=== PATIENT | female | born 2005 | race Caucasian/White ===

== ENCOUNTER 2024-09-02 13:34 | Outpatient (CLI) | payer BC ==
[2024-09-02 14:54] LABS: Hematocrit 39.1 % (34.9-44.5); Hemoglobin 11.8 g/dL (12.0-15.5); Mean Corpuscular HGB CONC 30.2 g/dL (32.0-36.0); Mean Corpuscular Hemoglobin 24.4 pg (27.0-33.0); Mean Platelet Volume 10.3 fL (7.4-10.4); Platelet Count 245 10x3/uL (150-450); RBC Distribution Width 23.1 % (11.5-14.5); Red Blood Cell (RBC) Count 4.83 10x6/uL (3.90-5.03); White Blood Cell (WBC) Count 6.14 10x3/uL (3.5-10.5)
[2024-09-02 16:47] LABS: BHCG - Serum Negative (NEGATIVE); Pregs Control Background? CLEAR/WHITE (CLR/WHITE); Pregs Control Bar Appear? YES (CONTROL BAR)
== END 2024-09-02 13:35 | disposition home or self-care (01) ==
LOC: CSHLAB 13:34
PROVIDERS: ATTEND Surgery
DX: Z01.812 Encounter for preprocedural laboratory examination (principal); D73.4 Cyst of spleen
CPT/HCPCS: 84703; 85027

== ENCOUNTER 2024-09-10 06:40 | Day surgery (SDC) | payer BC ==
[2024-09-02 15:03] VITALS: BMI 24.0
[2024-09-10] MEDS ORDERED: Bupivacaine HCl 0.5%/Epinephrine 1:200,000/PF 30 ml Vial ONE (07:51)
[2024-09-10] MEDS ORDERED: Rocuronium Bromide 10 MG/ML (10ML VIAL) ONE ×2 (08:30)
[2024-09-10] MEDS ORDERED: PROPOFOL 20 ML ONE (08:30)
[2024-09-10] MEDS ORDERED: fentaNYL 50 mcg/mL 1 mL Vial ONE ×7 (08:30→11:16)
[2024-09-10] MEDS ORDERED: Midazolam HCl 2 mg/2 ml Vial ONE (08:38)
[2024-09-10] MEDS ORDERED: CEFAZOLIN 2 GM VIAL ONE (08:40)
[2024-09-10] MEDS ORDERED: Ondansetron PF 4 MG/2 ML Vial ONE (09:14)
[2024-09-10] MEDS ORDERED: Dexamethasone 4 mg/ml Vial ONE (09:14)
[2024-09-10] MEDS ORDERED: SUGAMMADEX SODIUM 200 MG/2 ML VIAL ONE (09:52)
[2024-09-10] MEDS ORDERED: Ketorolac Tromethamine 30 MG (1 mL) VIAL ONE ×2 (10:13→10:15)
[2024-09-10] MEDS ORDERED: HYDROcodone/Acetaminophen 5/325 mg Tablet ONE (11:58)
[2024-09-10] MEDS ORDERED: Ondansetron ODT 4 MG TAB ONE (12:59)
== END 2024-09-10 13:10 | disposition home or self-care (01) ==
LOC: CSHSDC 06:40
PROVIDERS: ATTEND Surgery
DX: D73.4 Cyst of spleen (principal); D50.0 Iron deficiency anemia secondary to blood loss (chronic); Z79.899 Other long term (current) drug therapy
CPT/HCPCS: 88112; 88172; 88304; 88341; 88342; C1889; J1100; J1885; J2250; J2405; J2704; J3010; Q0162